=== PATIENT | male | born 1980 | race Caucasian/White ===

== ENCOUNTER → 2018-08-05 | Day surgery (SDC) | payer BC ==
[~2018-08-05] MED LIST: FENTANYL CITRATE/PF 100MCG/2 ML INJ ONE; MELATONIN5 M2 PO; MIDAZOLAM HCL 2 MG/2 ML VIAL ONE; PROPOFOL IV EMULSION 10 MG/ML 50 ML VIAL ONE
--- OUTSIDE RECORDS SUMMARY | 2018-08-05 08:51 | XMS REPORT | Clinical Summary ---
Author Author [facility] Organization [facility] Address Unknown Phone Unavailable Care Team Providers Care Talent Acquisition Director Name Role Phone Asked, No Pcp PCP Unavailable Allergies No Known Allergies Medications End Date Status Medication Sig Dispensed Refills Start Date 10/21/2018 Active naproxen (NAPROSYN) 500 Take 1 tablet 60 tablet 0 201 MG tablet (500 mg 8 total) by mouth 2 (two) times a day. Active melatonin 10 mg capsule Take by 0 mouth. Active Problems Not on file Encounters Care Team Description Date Type Specialty Erwin Sykes MD Foreign body in pharynx, initial encounter (Primary Dx); Dehydration; Elevated TSH; Oropharyngeal dysphagia 07/21/2018 Emergency Emergency Medicine 07/21/2018 Travel Danial Crawford MD Biceps strain, left, initial encounter (Primary Dx); Left elbow pain; Ligamentous laxity of left elbow 10/21/2017 Office Visit Sports Medicine after 08/04/2017 Family History Medical History Relation Name Comments No Known Problems Father No Known Problems Mother Relation Name Status Comments Father Mother Social History Date Tobacco Use Types Packs/Day Years Used Never Smoker Smokeless Tobacco: Never Used Alcohol Use Drinks/Week oz/Week Comments Yes 4 Cans of 2.4 beer Sex Assigned at Date Recorded Not on file Industry Job Start Date Occupation Not on file Not on file Not on file Travel End Travel History Travel Start No recent travel history available. Last Filed Vital Signs Time Taken Vital Sign Reading 07/21/2018 12:00 PM CDT Blood Pressure 141/88 07/21/2018 12:01 PM CDT Pulse 74 07/21/2018 12:00 PM CDT Temperature 36.9 C (98.4 F) 07/21/2018 12:00 PM CDT Respiratory Rate 16 07/21/2018 12:01 PM CDT Oxygen Saturation 95% - Inhaled Oxygen - Concentration 07/21/2018 8:13 AM CDT Weight 104 kg (230 lb) 07/21/2018 8:13 AM CDT Height 188 cm (6' 2") 07/21/2018 8:13 AM CDT Body Mass Index 29.53 Plan of Treatment Health Maintenance Due Date Last Done Comments INFLUENZA VACCINE 11/11/2018 Procedures Comments Procedure Name Priority Date/Time Associated Diagnosis URINALYSIS SCREEN AND Routine 07/21/2018 MICROSCOPY, WITH REFLEX 11:10 AM CDT TO CULTURE URINE CULTURE Routine 07/21/2018 11:[address] SOFT TISSUE NECK WO STAT 07/21/2018 CONTRAST 11:08 AM CDT THYROID STIMULATING STAT 07/21/2018 HORMONE 10:00 AM CDT T4, FREE STAT 07/21/2018 10:00 AM CDT ESTIMATED GFR STAT 07/21/2018 10:00 AM CDT B NATRIURETIC PEPTIDE STAT 07/21/2018 10:00 AM CDT CREATINE KINASE, TOTAL STAT 07/21/2018 (CPK) 10:00 AM CDT TROPONIN STAT 07/21/2018 10:00 AM CDT MAGNESIUM LEVEL STAT 07/21/2018 10:00 AM CDT PHOSPHORUS LEVEL STAT 07/21/2018 10:00 AM CDT COMPREHENSIVE METABOLIC STAT 07/21/2018 PANEL 10:00 AM CDT HC COMPLETE BLD COUNT STAT 07/21/2018 W/AUTO DIFF 10:00 AM CDT ECG 12-LEAD STAT 07/21/2018 9:53 AM CDT XR NECK SOFT TISSUE STAT 07/21/2018 9:36 AM CDT ECG ED PRELIMINARY Routine 07/21/2018 INTERPRETATION 9:01 AM CDT XR CHEST 2 VW STAT 07/21/2018 8:30 AM CDT XR ELBOW 3+ VW LEFT Routine 10/21/2017 Biceps strain, left, 2:51 PM CDT initial encounter after 08/04/2017 Results * Urinalysis screen and microscopy, with reflex to culture (07/21/2018 11:10 AM CDT) Specimen site Clean catch [facility] Color, UA Yellow [facility] Appearance, UA Clear [facility] Specific gravity, UA 1.023 1.001 - 1.035 [facility] pH, UA 5.0 5.0 - 8.5 [facility] Protein, UA Negative Negative [facility] Glucose, UA Negative Negative [facility] Ketones, UA Trace (A) Negative [facility] Bilirubin, UA Negative Negative [facility] Blood, UA Negative Negative [facility] Nitrite, UA Negative Negative [facility] Urobilinogen, UA Negative <2.0 [facility] Leukocyte esterase, UA Negative Negative [facility] WBC, UA 0-5 0 - 1 /HPF [facility] RBC, UA 0-5 0 - 5 /HPF [facility] Bacteria, UA None seen None seen [facility] Yeast, UA None seen [facility] Yeast with pseudohyphae, None seen [facility] Specimen Urine Performing Organization Address [facility] Phone Number [address] [place] [phone] PATHOLOGY AND GENOMIC MEDICINE [address] * Urine culture (07/21/2018 11:10 AM CDT) Urine culture SEE COMMENTComment: [facility] Bacteriuria screen negative. [facility] Specimen Urine Performing Organization Address City/[facility] Phone Number [address] [place] [address] PATHOLOGY AND GENOMIC MEDICINE [address] * CT Soft Tissue Neck Wo Contrast (07/21/2018 11:08 AM CDT) Narrative Performed At EXAMINATION:CT SOFT TISSUE NECK WO CONTRAST [facility] CLINICAL HISTORY:foreign body sensationsteak stuck in throat COMPARISON:None. TECHNIQUE: CT imaging was performed with iterative reconstruction technique and/or automated exposure control to reduce radiation dose. Findings: Lack of IV contrast enhanced evaluation of the soft tissues. No exophytic masses or mass effect in the visualized aerodigestive tract. No drainable fluid collections. No lymphadenopathy in the neck by CT criteria. No focal lesions in the salivary glands. Thyroid gland is within normal limits. No aggressive bony lesions. IMPRESSION: No radiopaque foreign body in the neck. No masses or lymphadenopathy in the neck. [id number] Procedure Note Hm Interface, Radiology Results Incoming - 07/21/2018 11:25 AM CDT EXAMINATION: CT SOFT TISSUE NECK WO CONTRAST CLINICAL HISTORY: foreign body sensation steak stuck in throat COMPARISON: None. TECHNIQUE: CT imaging was performed with iterative reconstruction technique and/or automated exposure control to reduce radiation dose. Findings: Lack of IV contrast enhanced evaluation of the soft tissues. No exophytic masses or mass effect in the visualized aerodigestive tract. No drainable fluid collections. No lymphadenopathy in the neck by CT criteria. No focal lesions in the salivary glands. Thyroid gland is within normal limits. No aggressive bony lesions. IMPRESSION: No radiopaque foreign body in the neck. No masses or lymphadenopathy in the neck. [id number] Performing Organization Address City/State/Zipcode Phone Number [facility] [address] [place] [address] * Estimated GFR (07/21/2018 10:00 AM CDT) Estimated GFR 84 mL/min/1.73 m2 [employer]USH[employer] CONFUCIANIST Comment: [facility] CatergoryUnitsInte rpretation G1 >=90 Normal or high G2 60-89Mildly decreased [id number] Mildly to moderately decreased [id number] Moderately to severely decreased G4 15-29Severely decreased G5 <15Kidney failure The eGFR was calculated using the Chronic Kidney Disease Epidemiology Collaboration (CKD-EPI) equation. Interpretation is based on recommendations of the National Kidney Foundation-Kidney Disease Outcomes Quality Initiative (NKF-KDOQI) published in 2014. Specimen Plasma specimen Performing Organization Address City/[facility] Cent[facility]ode Phone Number [facility] [address] [place] [address] PATHOLOGY AND GENOMIC MEDICINE [address] * Troponin (07/21/2018 10:00 AM CDT) Troponin <0.300 0.000 - 0.300 ng/mL [facility] Comment: [facility] 0.30 - 1.49 ng/mlMay indicate increased risk of acute coronary syndrome. >=1.5 ng/ml Consistent with acute myocardial infarction. The diagnostic value of a single normal or non-diagnostic result is questionable.Serial samples at 2-6 hour intervals are required to rule out acute myocardial injury. Specimen Plasma specimen Performing Organization Address [facility] Centercode Phone Number [facility] [place] [address] [place] [address] PATHOLOGY AND GENOMIC MEDICINE [address] * CBC with platelet and differential (07/21/2018 10:00 AM CDT) WBC 7.66 4.50 - 11.00 k/uL [facility] RBC 5.74 4.40 - 6.00 m/uL [facility] HGB 17.0 14.0 - 18.0 g/dL [facility] HCT 51.3 (H) 41.0 - 51.0 % [facility] MCV 89.4 82.0 - 100.0 fL [facility] MCH 29.6 27.0 - 34.0 pg [facility] MCHC 33.1 31.0 - 37.0 g/dL [facility] RDW - SD 42.1 37.0 - 55.0 fL [facility] MPV 11.4 8.8 - 13.2 fL [facility] Platelet count 206 150 - 400 k/uL [facility] Nucleated RBC 0.00 /100 WBC [facility] Neutrophils 70.7 (H) 39.0 - 69.0 % [facility] Lymphocytes 16.6 (L) 25.0 - 45.0 % [facility] Monocytes 9.0 0.0 - 10.0 % [facility] Eosinophils 2.5 0.0 - 5.0 % [facility] Basophils 0.9 0.0 - 1.0 % [facility] Specimen Blood Performing Organization Address City/[facility]ercowi Phone Number [address] [place] [address] PATHOLOGY AND [facility] MEDICINE [address] * Thyroid stimulating hormone (07/21/2018 10:00 AM CDT) TSH 5.49 (H) 0.27 - 4.20 uIU/mL [facility] Specimen Plasma specimen Performing Organization Address [facility] Phone Number [address] [place] [address] PATHOLOG[address] * T4, free (07/21/2018 10:00 AM CDT) T4, free 1.13 0.90 - 1.70 ng/dL [facility] Specimen Plasma specimen Performing Organization Address [facility] Phone Number [address] [place] [address] PATHOLOGY [address] * Phosphorus level (07/21/2018 10:00 AM CDT) Phosphorus 3.2 2.4 - 4.5 mg/dL [facility] Specimen Plasma specimen Performing Organization Address [facility] Phone Number [address] [place] [address] PATHOLOGY [address] * B natriuretic peptide (07/21/2018 10:00 AM CDT) BNP 2 0 - 100 pg/mL [facility] Specimen Blood Performing Organization Address City/[facility] Phone Number [address] [place] [address] PATHOLOGY AND GENOMIC MEDICINE [address] * Magnesium level (07/21/2018 10:00 AM CDT) Magnesium 2.6 1.6 - 2.6 mg/dL [facility] Specimen Plasma specimen Performing Organization Address City/[facility] Phone Number [address] [place] [address] PATHOLOGY AND GENOMIC MEDICINE [address] * Creatine kinase, total (CPK) (07/21/2018 10:00 AM CDT) Creatine kinase 74 39 - 308 U/L [facility] Specimen Plasma specimen Performing Organization Address [facility] Phone Number [address] [place] [address] PATHOLOGY AND GENOMIC MEDICINE [address] * Comprehensive metabolic panel (07/21/2018 10:00 AM CDT) Sodium 142 135 - 148 mEq/L [facility] Potassium 4.1 3.5 - 5.0 mEq/L [facility] Chloride 103 98 - 112 mEq/L [facility] CO2 28 24 - 31 mEq/L [facility] Anion gap 11@ANIO 7 - 15 mEq/L [facility] BUN 16 6 - 20 mg/dL [facility] Creatinine 1.10 0.70 - 1.20 mg/dL [facility] Glucose 99 65 - 99 mg/dL [facility] Calcium 10.5 (H) 8.3 - 10.2 mg/dL [facility] Protein 8.5 (H) 6.3 - 8.3 g/dL [facility] Comment: [facility] 4.6-7.0 g/dL 1 week 4.4-7.6 g/dL 7 months-1year 5.1-7.3 g/dL 1-2 years5.6-7 .5 g/dL >3 years6.0-8 .0 g/dL 18-150 6.3-8.3 g/dL Albumin 5.3 (H) 3.5 - 5.0 g/dL [facility] A/G ratio 1.7 0.7 - 3.8 [facility] Alkaline phosphatase 63 40 - 129 U/L [facility] AST 17 10 - 50 U/L [facility] ALT 20 5 - 50 U/L [facility] Total bilirubin 0.3 0.0 - 1.2 mg/dL [facility] Specimen Plasma specimen Performing Organization Address [facility] Centercode Phone Number [facility] DEPARTMENT OF [address] [place] [address] [place] [phone] PATHOLOGY AND GENOMIC MEDICINE [address] [place] [phone] [facility] * ECG 12 lead (07/21/2018 9:53 AM CDT) Ventricular rate 82 [facility] Atrial rate 82 [facility] IL interval 146 [facility] QRSD interval 88 [facility] QT interval 380 [facility] QTC interval 443 [facility] P axis 1 50 [facility] QRS axis 1 50 [facility] T wave axis 32 [facility] EKG impression Normal sinus rhythm-Normal [facility] MUSE ECG-No previous ECGs available- Narrative Performed At Performing Organization Address [facility] Centercode Phone Number [facility] MUSE [address] [place] [address] * XR Neck Soft Tissue (07/21/2018 9:36 AM CDT) Narrative Performed At EXAMINATION: XR NECK SOFT TISSUE [facility] CLINICAL HISTORY: FB ingestedneck pain COMPARISON:None IMPRESSION: No radiodense foreign body is identified. Tiny calcification noted anterior to the C4 vertebral body is consistent with calcified portion of the hyoid bone. Prevertebral soft tissue thickness is within normal limits. If there is persisting concern for swallowed foreign body, CT of the neck could be performed for further assessment. No significant degenerative change of the cervical spine. [id number] Procedure Note Hm Interface, Radiology Results Incoming - 07/21/2018 9:43 AM CDT EXAMINATION: XR NECK SOFT TISSUE CLINICAL HISTORY: FB ingested neck pain COMPARISON: None IMPRESSION: No radiodense foreign body is identified. Tiny calcification noted anterior to the C4 vertebral body is consistent with calcified portion of the hyoid bone. Prevertebral soft tissue thickness is within normal limits. If there is persisting concern for swallowed foreign body, CT of the neck could be performed for further assessment. No significant degenerative change of the cervical spine. [id number] Performing Organization Address [facility] Cent[facility]ode Phone Number [facility] [address] [place] [address] * ECG ED Preliminary Interpretation - Not an Order (07/21/2018 9:01 AM CDT) Narrative Performed At Erwin Sykes MD 07/21/20186:36 PM ECG ED Preliminary Interpretation - Not an Order Performed by: Erwin Sykes MD Authorized by: Erwin Sykes MD ECG reviewed by ED Physician in the absence of a medical reception specialist: yes Interpretation: Interpretation: normal Rate: ECG rate:82 ECG rate assessment: normal Rhythm: Rhythm: sinus rhythm Ectopy: Ectopy: none QRS: QRS axis:Normal QRS intervals:Normal Conduction: Conduction: normal ST segments: ST segments:Non-specific (v2) T waves: T waves: inverted Inverted:III, aVR and V1 * XR Chest 2 Vw (07/21/2018 8:30 AM CDT) Narrative Performed At EXAMINATION:XR CHEST 2 VW [facility] CLINICAL HISTORY:chest pain COMPARISON:None IMPRESSION: Normal 2 view chest The lungs are clear. The heart is not enlarged. The bony structures are within normal limits. [id number] Procedure Note Interface, Radiology Results Incoming - 07/21/2018 8:45 AM CDT EXAMINATION: XR CHEST 2 VW CLINICAL HISTORY: chest pain COMPARISON: None IMPRESSION: Normal 2 view chest The lungs are clear. The heart is not enlarged. The bony structures are within normal limits. [id number] Performing Organization Address [facility] Cent[facility]ode Phone Number [facility] [address] [place] [address] * XR Elbow 3+ Vw Left (10/21/2017 2:51 PM CDT) Narrative Performed At [facility] Normal joint spaces with no obvious fractures or dislocations Performing Organization Address City/State/Zipcode Phone Number [facility] [address] [place] [address] after 08/04/2017 Insurance Payer Benefit Subscriber ID Type Phone Address Plan / Group BCBS BCBS OUT xxxxxxxxxxxx PPO OF STATE Advance Directives Patient has advance care planning documents on file. For more information, wilber christopher contact: Lino Alas [address] [place] [address]
[2018-08-05 10:50] VITALS: BP 130/91
--- NOTE | 2018-08-05 17:13 | Operative Report ---
DATE OF PROCEDURE: 08/05/2018 SURGEON: Khadar Nick MD PROCEDURE: EGD with esophageal dilatation with brushings and biopsies. INDICATIONS FOR EGD: Dysphagia/odynophagia, acid reflux. MEDICATIONS: The patient was done under MAC, please see anesthesiologist's note. PROCEDURE IN DETAIL: With the patient in left lateral decubitus position, the flexible fiberoptic Olympus gastroscope was introduced into the esophagus under direct visualization without any difficulty. There was a minute submucosal nodule noted in the cervical esophagus that was biopsied. Longitudinal furrows were noted in the esophagus and biopsies were obtained to rule out eosinophilic esophagitis. There was also some whitish plaques scattered throughout the esophagus and brushings were obtained to rule out Andree esophagitis. There was a mild stricture noted at the GE junction and overlying mucosa was nodular and biopsies were obtained and the esophagus was dilated to size 52-German Jaime. The scope was then advanced with ease into the stomach. Mucosa overlying the antrum and the body revealed some diffuse erythema, low-grade edema. Biopsies were obtained and sent to stain for H pylori. Pylorus was of normal contour and shape. It was intubated with ease and the scope was advanced all the way to the second portion of the duodenum. The scope was then withdrawn slowly. Biopsies were obtained from the proximal second portion and the duodenal bulb to rule out sprue. The scope was then withdrawn back into the stomach and retroflexed. Mucosa overlying the fundus and cardia appeared to be within normal limits. The scope was then straightened out, it was subsequently withdrawn. The patient tolerated the procedure well. IMPRESSION: 1. Submucosal nodule, cervical esophagus, biopsied. 2. Rule out Andree esophagitis. 3. Rule out eosinophilic esophagitis. 4. Esophageal stricture at GE junction somewhat nodular, biopsied and dilated to size 52-German Jaime. 5. Gastritis, biopsied. Biopsies sent to stain for H pylori. 6. Rule out sprue. PLAN: Follow up histology. Initiate Protonix 40 mg one p.o. q.a.m. a.c. Khadar Nick MD [facility]/MODL /[id number]
== END | disposition home or self-care (01) ==
LOC: OR 08:47
PROVIDERS: ATTEND Internal Medicine Gastroenterology
DX: K22.2 Esophageal obstruction (principal); K29.70 Gastritis, unspecified, without bleeding; B37.81 Candidal esophagitis; I10 Essential (primary) hypertension; Z68.29 Body mass index [BMI] 29.0-29.9, adult
CPT/HCPCS: 43239; 43450; J2250; J2704; 43235

== ENCOUNTER → 2021-08-22 | Day surgery (SDC) | payer BC ==
[~2021-08-22] MED LIST changes: -FENTANYL CITRATE/PF 100MCG/2 ML INJ ONE; +METOCLOPRAMIDE HCL 10 MG/2ML VIAL ONE; -MIDAZOLAM HCL 2 MG/2 ML VIAL ONE; +NEXIUM40 MG PO; +PROPOFOL IV EMULSION 10 MG/ML 20 ML VIAL ONE; -PROPOFOL IV EMULSION 10 MG/ML 50 ML VIAL ONE
[2021-08-22 14:40] VITALS: BP 132/88
[2021-08-25 19:09] LABS: ENDOMYSIAL ANTIBODIES, IGA Negative (Negative)
== END | disposition home or self-care (01) ==
LOC: ENDO 10:06
PROVIDERS: ATTEND Internal Medicine Gastroenterology
DX: K22.2 Esophageal obstruction (principal); K29.50 Unspecified chronic gastritis without bleeding; K29.80 Duodenitis without bleeding; K20.0 Eosinophilic esophagitis; K31.89 Other diseases of stomach and duodenum; K21.9 Gastro-esophageal reflux disease without esophagitis; K22.89 Other specified disease of esophagus; R93.3 Abnormal findings on diagnostic imaging of other parts of digestive tract; D72.820 Lymphocytosis (symptomatic); Z71.3 Dietary counseling and surveillance; Z71.89 Other specified counseling; R03.0 Elevated blood-pressure reading, without diagnosis of hypertension; Z01.810 Encounter for preprocedural cardiovascular examination; Z01.812 Encounter for preprocedural laboratory examination; Z20.822 Contact with and (suspected) exposure to COVID-19; Z68.26 Body mass index [BMI] 26.0-26.9, adult
CPT/HCPCS: 43239; 43450; 82784; 83516; 86256; 93005; C9113; J2704; J2765; U0002